=== PATIENT | female | born 1950 | race Caucasian/White ===

== ENCOUNTER 2019-01-31 07:54 | Day surgery (SDC) | payer MEDICARE, OTHER ==
[~2019-01-31 07:54] MED LIST: Acetaminophen/HYDROcodone 325-5 MG Tab PO PRN; Lactated Ringers 1,000 ML IV SCH; ceFAZolin 1 GM in Sodium Chloride 0.9% 50 ML IV ONE
[2019-01-31] MEDS ORDERED: ceFAZolin 1 GM Vial ONE (08:52)
[2019-01-31] MEDS ORDERED: Midazolam 1 MG/ML 2 ML SDV ONE (10:40)
[2019-01-31] MEDS ORDERED: fentaNYL 100 MCG/2 ML SDV ONE (10:40)
[2019-01-31] MEDS ORDERED: Propofol 200 MG/20 ML SDV ONE (10:40)
[2019-01-31] MEDS ORDERED: Acetaminophen/HYDROcodone 325-10 MG Tab ONE (11:27)
[2019-01-31] MEDS ORDERED: Acetaminophen/HYDROcodone 325-10 MG Tab PO ONE (11:50)
[2019-01-31 12:38] VITALS: BP 123/67
--- NOTE | 2019-01-31 17:54 | OR ---
DATE OF OPERATION: 01/31/2019 PREOPERATIVE DIAGNOSIS: Left ring trigger finger. POSTOPERATIVE DIAGNOSIS: Left ring trigger finger. PROCEDURE: Left ring trigger finger release. ANESTHESIA: Pink block. CERTIFIED MEDICAL BILLER: Herminio Epps RN. SPECIMENS: None. DRAINS: None. ESTIMATED BLOOD LOSS: Minimal. COMPLICATIONS: None apparent. DESCRIPTION OF PROCEDURE: After informed consent was obtained, the patient was brought to the operating room, where a Pink block was performed uneventfully. The left upper extremity was prepped and draped sterilely. A time-out was held and antibiotics were confirmed. An incision was made in line with the A1 taylor over the ring finger and taken sharply through the skin and subcutaneous tissues with careful scissor dissection to protect the neurovascular structures and identified the A1 taylor. We released it and then we were able to get full excursion of the tendon with full flexion of the digit without triggering. We irrigated and closed with 4-0 nylon. Sterile dressings were applied. The patient was brought to recovery room in stable condition. YANA/HALEIGH /[id number]
== END 2019-01-31 12:15 | disposition home or self-care (01) ==
LOC: LB.SDS 07:54
PROVIDERS: ATTEND Orthopaedic Surgery
DX: M65.342 Trigger finger, left ring finger (principal); I10 Essential (primary) hypertension; E03.9 Hypothyroidism, unspecified; K21.9 Gastro-esophageal reflux disease without esophagitis; G89.29 Other chronic pain; M54.9 Dorsalgia, unspecified; M19.90 Unspecified osteoarthritis, unspecified site; M81.0 Age-related osteoporosis without current pathological fracture; Z88.8 Allergy status to other drugs, medicaments and biological substances; Z79.899 Other long term (current) drug therapy
CPT/HCPCS: A9270-GY; J2250; J2704; J3010; J7120

== ENCOUNTER → 2019-08-05 | Outpatient (CLI) | payer MEDICARE, OTHER ==
--- NOTE | 2019-08-06 12:53 | CR ---
DATE OF SERVICE: 08/05/2019 CLINICAL DATA: Cough. PA AND LATERAL CHEST: Comparison is made to a prior exam dated 08/07/2014. The heart size is normal. There is a 15 mm densely calcified nodule in the right lung base consistent with prior granulomatous disease. The lungs are otherwise clear. No pneumothorax. No pleural effusions. No changes from the prior exam. No evidence of acute intrathoracic disease. [id number] [facility]
== END ==
LOC: LB.CLINIC 13:33
PROVIDERS: ATTEND Family Medicine
DX: R05 Cough (principal); R91.1 Solitary pulmonary nodule
CPT/HCPCS: 71046

== ENCOUNTER 2022-04-10 08:53 | Day surgery (SDC) | payer MEDICARE, OTHER ==
[~2022-04-10 08:53] MED LIST changes: -Acetaminophen/HYDROcodone 325-5 MG Tab PO PRN; -Lactated Ringers 1,000 ML IV SCH; +Metoclopramide 10 MG/2 ML SDV IV PRN; -ceFAZolin 1 GM in Sodium Chloride 0.9% 50 ML IV ONE
[2022-04-10] MEDS: Sodium Chloride 0.9% 1,000 ML IV SCH (09:39)
[2022-04-10] MEDS ORDERED: Propofol 1,000 MG/100 ML SDV ONE (11:00)
[2022-04-10 11:26] VITALS: BP 136/71; PULSE 62
== END 2022-04-10 12:15 | disposition home or self-care (01) ==
LOC: LB.SDS 08:53
PROVIDERS: ATTEND Surgery
DX: K57.30 Diverticulosis of large intestine without perforation or abscess without bleeding (principal); K52.9 Noninfective gastroenteritis and colitis, unspecified; K29.50 Unspecified chronic gastritis without bleeding; I10 Essential (primary) hypertension; K21.9 Gastro-esophageal reflux disease without esophagitis; Z87.19 Personal history of other diseases of the digestive system; Z98.890 Other specified postprocedural states
CPT/HCPCS: 43239; 45331; J2704; J7030; 88305

== ENCOUNTER 2024-08-05 07:14 | Emergency (ER) | payer MEDICARE, OTHER ==
[2024-08-05 07:32] VITALS: BP 159/85; PULSE 94
[2024-08-05 09:23] LABS: CORONAVIRUS COVID-19 NAA POSITIVE (NEGATIVE); INFLUENZA A NAA NEGATIVE (NEGATIVE); INFLUENZA B NAA NEGATIVE (NEGATIVE)
== END 2024-08-05 08:10 | disposition home or self-care (01) ==
LOC: LB.ED 07:14
DX: U07.1 COVID-19 (principal); I10 Essential (primary) hypertension; Z90.49 Acquired absence of other specified parts of digestive tract; Z79.899 Other long term (current) drug therapy; Z88.8 Allergy status to other drugs, medicaments and biological substances
CPT/HCPCS: 0240U; 99283

== ENCOUNTER 2025-06-14 16:21 | Emergency (ER) | payer MEDICARE, OTHER ==
[2025-06-14 16:28] VITALS: BP 144/84; PULSE 85
== END 2025-06-14 16:50 | disposition home or self-care (01) ==
LOC: LB.ED 16:21
DX: S01.81XA Laceration without foreign body of other part of head, initial encounter (principal); I10 Essential (primary) hypertension; E03.9 Hypothyroidism, unspecified; M19.90 Unspecified osteoarthritis, unspecified site; Z90.49 Acquired absence of other specified parts of digestive tract; Z79.899 Other long term (current) drug therapy; Z88.8 Allergy status to other drugs, medicaments and biological substances; Z79.890 Hormone replacement therapy; W01.198A Fall on same level from slipping, tripping and stumbling with subsequent striking against other object, initial encounter
CPT/HCPCS: 12011; 99282; 99283; J2003

== ENCOUNTER 2025-08-21 08:22 | Emergency (ER) | payer MEDICARE, OTHER ==
[2025-08-21 08:58] VITALS: BP 166/74; PULSE 64
== END 2025-08-21 09:05 | disposition home or self-care (01) ==
LOC: LB.ED 08:22
DX: R23.8 Other skin changes (principal); I10 Essential (primary) hypertension; E03.9 Hypothyroidism, unspecified; M19.90 Unspecified osteoarthritis, unspecified site; Z79.899 Other long term (current) drug therapy; Z79.890 Hormone replacement therapy; Z88.8 Allergy status to other drugs, medicaments and biological substances; Z90.49 Acquired absence of other specified parts of digestive tract; Z90.710 Acquired absence of both cervix and uterus
CPT/HCPCS: 99283